=== PATIENT | male | born 1990 | race Caucasian/White ===

== ENCOUNTER 2022-05-05 06:25 | Observation (INO) ==
[2022-05-05] MEDS ORDERED: HYDROmorphone INJ 2 MG/ML SYR/VIAL IV STA ×2 (06:46→08:21)
[2022-05-05] MEDS ORDERED: ceFAZolin 3,000 MG in DEXTROSE 5% 50 ML IV STA (06:46)
[2022-05-05] MEDS ORDERED: SODIUM CHLORIDE 0.9% 1000ML 1,000 ML IV SCH (07:00)
--- NOTE | 2022-05-05 07:03 | XRay Report ---
XR chest 1V portable CLINICAL HISTORY: injury TECHNIQUE: Single frontal radiograph of the chest was obtained. Comparison: None available at the time of this dictation. FINDINGS: No lines and tubes are seen. The cardiomediastinal silhouette is normal. The lungs are clear. No evid ence of pleural effusion or pneumothorax. IMPRESSION: No acute chest disease. ACT 112: Negative or not required by law. Electronically signed by: Jose Luis Phan M.D. 05/05/2022 7:01 AM
[2022-05-05 07:08] LABS: Basophils # (auto) 0.06 K/uL (0-0.2); Basophils % (auto) 0.7 %; Eosinophils # (auto) 0.17 K/uL (0-0.50); Eosinophils % (auto) 1.9 %; Hematocrit (blood only) 48.7 % (40.1-51.0); Hemoglobin 16.8 g/dl (14.0-18.0); Immature Granulocytes # (auto) 0.05 K/uL (0.00-0.02); Immature Granulocytes % (auto) 0.6 %; Lymphocytes # (auto) 1.44 K/uL (1.2-3.4); Lymphocytes % (auto) 16.3 %; Mean Corpuscular Hemoglobin 30.1 pg (25.0-34.0); Mean Corpuscular Hgb Conc 34.5 g/dL (32.0-36.0); Mean Corpuscular Volume 87.3 fL (80.0-100.0); Mean Platelet Volume 10.4 fL (9.4-12.4); Monocytes # (auto) 0.66 K/uL (0.24-0.82); Monocytes % (auto) 7.5 %; Neutrophils # (auto) 6.47 K/uL (1.4-6.5); Platelet Count 227 K/uL (130-400); RDW Coefficient of Variation 13.3 % (11.5-14.5); RDW Standard Deviation 42.6 fL (36.4-46.3); Red Blood Count 5.58 M/uL (4.63-6.08); White Blood Count 8.85 K/ul (4.8-10.8)
--- NOTE | 2022-05-05 07:19 | XRay Report ---
XR tibia fibula LT 2V CLINICAL HISTORY: injury TECHNIQUE: 2 radiographic views of the left leg were obtained. Comparison: Comparison is made to left knee radiographs 04/07/2010 FINDINGS: There is an oblique fracture of the midshaft of the tibia with approximately 1 cortex width posterior displacement. Bony fragments are seen about the fracture. Joint spaces are well-preserved. Soft tiss ue swelling is seen. IMPRESSION: Oblique fracture of the mid tibia with a few bony fragments seen. ACT 112: Negative or not required by law. Electronically signed by: Jose Luis Phan M.D. 05/05/2022 7:18 AM
[2022-05-05 07:32] LABS: Albumin Globulin Ratio 1.4 (0.9-2); Albumin Level 4.3 gm/dl (3.4-5.0); BUN Creatinine Ratio 21.4 (10-20); Bilirubin,Total 0.5 mg/dl (0.2-1.0); Calcium 9.5 mg/dl (8.5-10.1); Creatinine Clr Calc Pharmacy 104.9 ml/min; Est GFR (African American) 112.5 ml/min; Potassium 3.9 mmol/L (3.5-5.1); Total Protein 7.3 gm/dl (6.0-8.3)
--- NOTE | 2022-05-05 08:21 | Emergency Department Note ---
History of Present Illness General Chief complaint: Leg Injury/Pain Time Seen by Provider: 05/05/22 06:30 History of Present Illness Maximum Pain Intensity: 8 32-year-old male presents to the ED with a chief complaint of a right leg injury. The patient states that he does not recall exactly what happened. He states that that he remembers being in town. He states that he was walking to a friend's house earlier this morning. He was walking against traffic. He states that he is not 100% sure what happened. He somehow injured his left leg. He states that he remembers a female friend of his asking him if he is okay. He told her that he thinks that he broke his leg. EMS was called and he was brought in here for evaluation. The patient states that he was using some methamphetamines this morning. He denies any other complaints of injury other than his leg. The patient denies any headaches, chest pains or shortness of breath. No abdominal pains. No nausea or vomiting. No recent illness. The exact time that occurred is unclear. Home Medications Medication Instructions Recorded Confirmed Type No Known Home Medications 05/05/22 05/05/22 History Allergies Allergy/AdvReac Type Severity Reaction Status Date / Time No Known Allergies Allergy NONE Unverified 05/05/22 11:15 Past Med/Surg History Social History Smoking Status: Current every day smoker Tobacco Type: Cigarettes Preferred Language: Maori Feels Safe at Home: Yes Review of Systems A total of 10 systems reviewed and were otherwise negative Physical Exam Vital Signs Vital Signs - 24 hr 05/05/22 06:27 05/05/22 07:00 05/05/22 07:38 Temperature 36.5 C Temperature Source Oral Pulse Rate 78 Pulse Rate [Apical] 78 Pulse Rhythm [Apical] Regular Pulse Strength [Apical] Normal Respiratory Rate 20 16 Respiratory Effort / Characteristics Non-Labored Spontaneous Non-Labored Respiratory Depth Normal Normal Respiratory Pattern Regular Blood Pressure 135/77 Blood Pressure [Left Arm] 146/82 H Blood Pressure Mean 96 Blood Pressure Mean [Left Arm] 103 Blood Pressure Position [Left Arm] Lying Pulse Oximetry 99 100 99 Oxygen Delivery Method Room Air Room Air Room Air Sepsis New/Unexplained Change in Mental Status N/A Sepsis Action Taken by Nursing No Action Required 05/05/22 09:00 Temperature Temperature Source Pulse Rate Pulse Rate [Apical] 90 Pulse Rhythm [Apical] Regular Pulse Strength [Apical] Normal Respiratory Rate 18 Respiratory Effort / Characteristics Non-Labored Respiratory Depth Normal Respiratory Pattern Regular Blood Pressure Blood Pressure [Left Arm] 125/66 Blood Pressure Mean Blood Pressure Mean [Left Arm] 85 Blood Pressure Position [Left Arm] Lying Pulse Oximetry 99 Oxygen Delivery Method Room Air Sepsis New/Unexplained Change in Mental Status Sepsis Action Taken by Nursing CONSTITUTIONAL/VITAL SIGNS: Reviewed / noted above. GENERAL: Non-toxic in appearance. INTEGUMENTARY: Warm, dry, and [place]. HEAD: Normocephalic. No evidence of trauma EYES: without scleral icterus or trauma. ENT/OROPHARYNX: clear and moist. LYMPHADENOPATHY/NECK: Is supple without lymphadenopathy or meningismus. RESPIRATORY: Clear to auscultation bilaterally. No increased work of breathing. CARDIOVASCULAR: Regular rate and rhythm. GI/ABDOMEN: Soft and nontender. No organomegaly or pulsatile mass. EXTREMITIES: Warm and well perfused. The patient has an open wound to the left anterior tibial region with some mild bleeding and pain and some crepitus with any movement. He is distally neurovascularly intact. There are some very minor abrasions noted to the bilateral forearms. BACK: No CVA tenderness. No midline tenderness to the cervical, thoracic or lumbar spine. No pain with compression of the thorax. No crepitus. NEUROLOGICAL: Intact without focal deficits. PSYCHIATRIC: normal affect. MUSCULOSKELETAL: Normally developed with good muscle tone. TRIAGE NURSING DOCUMENTATION REVIEWED. Course Administered Medications Discontinued Medications Hydromorphone HCl (Hydromorphone Inj 2 Mg/Ml Syr/Vial) 2 mg IV NOW STA Stop: 05/05/22 06:47 Last Admin: 05/05/22 06:51 Dose: 2 mg Documented By: ANDREI Hydromorphone HCl (Hydromorphone Inj 2 Mg/Ml Syr/Vial) 2 mg IV NOW STA Stop: 05/05/22 08:22 Last Admin: 05/05/22 08:29 Dose: 2 mg Documented By: Cefazolin Sodium 3,000 mg/ (Dextrose) 72.5 mls @ 145 mls/hr IV NOW STA Stop: 05/05/22 07:15 Last Infusion: 05/05/22 07:42 Dose: 0 mls/hr Documented By: Admin: 05/05/22 06:57 Dose: 145 mls/hr Documented By: ANDREI Sodium Chloride (Nss 1000ml) 1,000 mls @ 999 mls/hr IV .Q1H1M STEPHANIE Stop: 05/05/22 08:00 Last Infusion: 05/05/22 08:00 Dose: 0 mls/hr Documented By: Admin: 05/05/22 06:57 Dose: 999 mls/hr Documented By: ANDREI Medical Decision Making Differential Diagnosis Differential includes close head injury, intracranial bleed, facial trauma, cervical spine trauma, chest and thoracic trauma, abdominal and intra-abdominal trauma, spine neurologic trauma, extremity trauma. Medical Records Attestation: I reviewed the patient's medical records. Home Medications Current Medication List: was personally reviewed by me Laboratory Data Attestation: I reviewed the patient's lab results. Result diagrams: 05/05/22 05:40 05/05/22 05:40 Lab Results 05/05/22 05/05/22 05/05/22 Range/Units 05:40 05:40 08:35 WBC 8.85 (4.8-10.8) K/ul RBC 5.58 (4.63-6.08) M/uL Hgb 16.8 (14.0-18.0) g/dl Hct 48.7 (40.1-51.0) % MCV 87.3 (80.0-100.0) fL MCH 30.1 (25.0-34.0) pg MCHC 34.5 (32.0-36.0) g/dL RDW Std Deviation 42.6 (36.4-46.3) fL RDW Coeff of Diomedes 13.3 (11.5-14.5) % Plt Count 227 (130-400) K/uL MPV 10.4 (9.4-12.4) fL Immature Gran % (Auto) 0.6 % Neut % (Auto) 73.0 % Lymph % (Auto) 16.3 % [place] % (Auto) 7.5 % Eos % (Auto) 1.9 % Baso % (Auto) 0.7 % Neut # (Auto) 6.47 (1.4-6.5) K/uL Lymph # (Auto) 1.44 (1.2-3.4) K/uL [place] # (Auto) 0.66 (0.24-0.82) K/uL Eos # (Auto) 0.17 (0-0.50) K/uL Baso # (Auto) 0.06 (0-0.2) K/uL Immature Gran # (Auto) 0.05 H (0.00-0.02) K/uL Sodium 138 (136-145) mmol/L Potassium 3.9 (3.5-5.1) mmol/L Chloride 103 (98-107) mmol/L Carbon Dioxide 27 (21-32) mmol/L Anion Gap 8 (3-11) BUN 22 (6-23) mg/dl Creatinine 1.03 (0.6-1.4) mg/dl Est Cr Clr Drug Dosing 104.9 ml/min Est GFR ( Amer) 112.5 ml/min Est GFR (Non-Af Amer) 97.0 ml/min BUN/Creatinine Ratio 21.4 H (10-20) Glucose 137 H (70-99(Fasting)) mg/dl Calcium 9.5 (8.5-10.1) mg/dl Total Bilirubin 0.5 (0.2-1.0) mg/dl AST 25 (13-39) U/L ALT 15 (7-52) U/L Alkaline Phosphatase 56 (34-104) U/L Total Creatine Kinase 249 H (30-223) U/L Total Protein 7.3 (6.0-8.3) gm/dl Albumin 4.3 (3.4-5.0) gm/dl Globulin 3.0 (2.5-4.0) gm/dl Albumin/Globulin Ratio 1.4 (0.9-2) SARS-CoV-2, RNA, NAAT NEGATIVE (NEGATIVE) Imaging Data Radiologist's Impression: Chest X-Ray 05/05/22 06:46 XR chest 1V portable CLINICAL HISTORY: injury TECHNIQUE: Single frontal radiograph of the chest was obtained. Comparison: None available at the time of this dictation. FINDINGS: No lines and tubes are seen. The cardiomediastinal silhouette is normal. The lungs are clear. No evidence of pleural effusion or pneumothorax. IMPRESSION: No acute chest disease. ACT 112: Negative or not required by law. Electronically signed by: Jose Luis Phan M.D. 05/05/2022 7:01 AM Tibia/Fibula X-Ray 05/05/22 06:46 XR tibia fibula LT 2V CLINICAL HISTORY: injury TECHNIQUE: 2 radiographic views of the left leg were obtained. Comparison: Comparison is made to left knee radiographs 04/07/2010 FINDINGS: There is an oblique fracture of the midshaft of the tibia with approximately 1 cortex width posterior displacement. Bony fragments are seen about the fracture. Joint spaces are well-preserved. Soft tissue swelling is seen. IMPRESSION: Oblique fracture of the mid tibia with a few bony fragments seen. ACT 112: Negative or not required by law. Electronically signed by: Jose Luis Phan M.D. 05/05/2022 7:18 AM ECG Data Attestation: I personally reviewed and interpreted this ECG as follows: Additional Comments: Twelve-lead EKG: Per my interpretation shows a normal sinus rhythm at a rate of 93. No ST elevation. No PVCs. Normal QTC. Head Trauma GCS Score: 15 MDM Narrative 32-year-old male presents with a left leg injury as detailed above. He is x-ray shows an oblique fracture. His exam suggest an open fracture. Other than some minor abrasions to the bilateral forearms, no other suspected injury was found on exam. Blood work was unremarkable. I did speak with Dr. Cheema from orthopedics. The patient was seen by the physician assistant produce manager here and placed in a splint for the plan to take the patient to the operating room later today for repair. The patient was treated here with IV Dilaudid for his pain. He was given IV Ancef. Impression & Plan Open fracture of tibia Discharge Plan Visit Data Chief Complaint: Leg Injury/Pain ED Provider: Quintin Zhang Discharge Problem: Open fracture of tibia Patient Disposition: Being Evaluated by Surgeon Forms Stand Alone Forms: My [facility] Prescriptions Prescriptions: No Action No Known Home Medications Referrals Referrals: PCP,NO [Primary Care Provider] -
--- NOTE | 2022-05-05 11:01 | History & Physical Report ---
Date of Service May 05, 2022 Assessment & Plan (1) Open fracture of tibia: Wound and leg were cleaned with hibiclens brush and then betadine. I applied a dressing with xeroform, betadine soaked 4x4's and then a splint. Recommend I & D, and IM nailing of the left open tibia fracture. He wishes to proceed today with that. NPO. He was given ancef. We will give a dose of gent. as well. History of Present Illness Chief Complaint: .Open left tibia fracture Primary Care Provider: NO PCP . Koffi is a 32 year old patient brought to the ER by EMS with an open left tibia fracture. He doesn't recall how he injured his leg or exactly when it occurred. He believes he was just walking down the street. He apparently was using methamphetamine. He was given ancef in the ER. Allergies Allergy/AdvReac Type Severity Reaction Status Date / Time No Known Allergies Allergy NONE Unverified 08/23/09 14:02 Home Medications Medication Instructions Recorded Confirmed Type None (Patient States No Home Meds) ##0 04/07/10 History !Med List Verified In Ed ##0 07/26/10 History Past Med/Surg History Social History Smoking Status: Current every day smoker Tobacco Type: Cigarettes Preferred Language: Romanian Feels Safe at Home: Yes Review of Systems All systems reviewed & are unremarkable except as noted in HPI & below. Physical Exam . alert, NAD. left le-2cm diameter wound with some bleeding anterior lower leg. Also has another transverse wound more distally. This second wound did not appear to communicate deep. Compartments soft. Tender at the fracture site. Able to move toes appropriately. NVI Results & Data Results & Data Laboratory Results . Diagnostic Findings .xrays show a midshaft tibia fracture PG Care Time/CCT Total # of Minutes Spent Total Time Spent with Patient: Total time spent is greater than 50% in coordination of care (as documented) at patient's floor/unit and/or counseling patient: Coding Level of Care Code 18397 Initial Inpt Care Lvl 3 Diagnoses Open fracture of tibia S82.209B
[2022-05-05] MEDS ORDERED: GENTAMICIN CONSULT ACTIVE PRN ×5 (11:06→20:19)
[2022-05-05] MEDS ORDERED: GENTAMICIN SULFATE 100 MG in DEXTROSE 5% 100 ML IV STA (11:36)
[2022-05-05] MEDS ORDERED: MIDAZOLAM HCL 1 MG/ML 2ML VIAL ONE ×2 (13:33)
[2022-05-05] MEDS ORDERED: fentaNYL citrate 100 MCG/2 ML VIAL ONE (13:33)
--- NOTE | 2022-05-05 14:26 | Anesthesiology Consultation ---
Date of Service May 05, 2022 Assessment & Plan Chart Review Chart Review: Acceptable Risk for Surgery and Patient NOT seen in Pre Admission Testing Consults Requested none ASA [id number] Proposed Anesthesia Anesthesia Type: General Additional Comments: covid test neg. History Surgery Operation Date: 05/05/22 07:00 Proposed Procedures p Intramedullary Nail Left Tibia, Incision and Drainage of Open Left Tibia - Quintin Curiel MD Height/Weight Height: 5 ft 9 in Weight: 75.9 kg Allergies Allergy/AdvReac Type Severity Reaction Status Date / Time No Known Allergies Allergy NONE Unverified 05/05/22 11:15 Medications Home Medications Medication Instructions Recorded Confirmed Last Taken No Known Home Medications 05/05/22 05/05/22 Unknown Past Medical History methamphetamine use tobacco smoker;chews tobacco Exercise / Class Metabolic Activity II 4-5 Yardwork/Stairs/Walk up hill Past Anesthesia History No Hx of Anesthesia Complications and No Family Hx of Anesthesia Complications History of PONV No Hx of PONV and No Hx of Motion Sickness Social History Smoking Status: Current every day smoker substance use type: amphetamines and methamphetamine Physical Exam Vital Signs Last Vital Signs Temp 36.5 C 05/05/22 06:27 Pulse 74 05/05/22 13:00 Resp 16 05/05/22 13:00 BP 106/80 05/05/22 13:00 Pulse Ox 98 05/05/22 13:00 O2 Del Method 05/05/22 13:00 Testing Laboratory Results 05/05/22 05:40 05/05/22 05:40 Electrocardiogram Date: 05/05/22 Findings: + NSR @ (@ 93) Chest X-Ray Date: 05/05/22 Findings: + NAD
[2022-05-05] MEDS ORDERED: EPINEPHrine INJ 1 MG/ML AMP ONE (14:58)
[2022-05-05] MEDS ORDERED: BUPIVACAINE 0.5 % 5 MG/1 ML MPF 30ML VIAL ONE (14:58)
[2022-05-05] MEDS ORDERED: HYDROmorphone INJ 0.5 MG/0.5 ML SYR IV PRN ×2 (15:08→20:19)
[2022-05-05] MEDS ORDERED: HYDROmorphone INJ 2 MG/ML SYR/VIAL ONE (15:09)
[2022-05-05] MEDS ORDERED: ceFAZolin 2000MG 2,000 MG/15 ML SYR IV ONE (16:06)
[2022-05-05] MEDS ORDERED: ceFAZolin 330 MG/ML 1 GM VIAL ONE (16:08)
[2022-05-05] MEDS ORDERED: SODIUM CHLORIDE 0.9% INJ 10 ML VIAL ONE (16:08)
--- NOTE | 2022-05-05 16:12 | History & Physical Bridge Note ---
Date of Service May 05, 2022 History & Physical Bridge Note I have examined the patient, reviewed the History & Physical and in the interval since the performance of the History & Physical I have noted the following changes of clinical significance: no changes noted. I independently evaluated the patient and recommended surgery to him. We discussed the risks and benefits of LEFT OPEN TIBIA FRACTURE DEBRIDEMENT, OPEN REDUCTION AND INTERNAL FIXATION. He was agreeable to proceed batool.
[2022-05-05] MEDS ORDERED: KETAMINE 50 MG/5 ML SYRINGE ONE (16:40)
[2022-05-05] MEDS ORDERED: PROPOFOL IV EMULSION 10 MG/ML 20 ML VIAL IV ONE (16:40)
[2022-05-05] MEDS ORDERED: LIDOCAINE 2% MPF LOCAL 5 ML VIAL INFIL ONE (16:40)
[2022-05-05] MEDS ORDERED: DEXAMETHASONE SOD INJ 4 MG/ML VIAL ONE (16:40)
[2022-05-05] MEDS ORDERED: GLYCOPYRROLATE 0.2 MG/ML VIAL ONE (16:40)
[2022-05-05] MEDS ORDERED: NEOSTIGMINE METHYLSULFATE 1 MG/ML 10ML VIAL ONE (16:40)
[2022-05-05] MEDS ORDERED: ROCURONIUM BROMIDE 10 MG/ML 5 ML VIAL IV ONE (16:40)
[2022-05-05] MEDS ORDERED: LARYING-O-JET KIT (LTA) ONE (16:40)
[2022-05-05] MEDS ORDERED: ONDANSETRON INJ 2 MG/ML 2 ML VIAL ONE ×3 (16:40→19:16)
[2022-05-05] MEDS ORDERED: ePHEDrine sulfate 50 MG/ML AMP IV PRN (17:36)
[2022-05-05] MEDS ORDERED: ATROPINE SULFATE 0.1 MG/ML 10ML SYR IV PRN (17:36)
[2022-05-05] MEDS ORDERED: MEPERIDINE HCL 25 MG/ML CARP/VIAL IV PRN (17:37)
[2022-05-05] MEDS ORDERED: PHENYLEPHRINE 100MCG/ML 5ML SYR IV PRN (17:37)
[2022-05-05] MEDS ORDERED: ONDANSETRON INJ 2 MG/ML 2 ML VIAL IV PRN ×2 (17:37→20:19)
[2022-05-05] MEDS ORDERED: fentaNYL citrate 100 MCG/2 ML VIAL IV PRN (17:37)
[2022-05-05] MEDS ORDERED: HYDROmorphone INJ 2 MG/ML SYR/VIAL IV PRN (17:37)
[2022-05-05] MEDS ORDERED: LABETALOL HCL IV 5 MG/ML 20ML IV PRN (17:37)
[2022-05-05 18:04] LABS: Appearance Urine Clear (Clear); Bacteria Urine Automated Negative (Negative); Bilirubin Urine Negative (Negative); Blood Urine 3+ (Negative); Color Urine Yellow; Epithelial Cell Urine Auto >30 /lpf (0-5); Glucose Urine UA Negative (Negative); Ketones Urine 2+ (Negative); Leukocyte Esterase Urine Negative (Negative); Nitrite Urine Negative (Negative); Protein Urine Trace (Negative); RBC Urine Automated >30 /hpf (0-4); Specific Gravity Urine 1.029 (1.000-1.030); Urobilinogen Urine Negative (Negative); pH Urine 5.5 (4.5-7.5)
[2022-05-05 18:14] LABS: Calcium Oxalate Crystals Urine Present (None Prsent)
[2022-05-05 18:46] LABS: Amphetamines+Metham, Urine Pos (Neg); Barbiturates, Urine Neg (Neg); Benzodiazepine, Urine Neg (Neg); Cocaine, Urine Neg (Neg); MDMA (Ecstacy), Urine Pos (Neg); Methadone, Urine Neg (Neg); Opiate, Urine Pos (Neg); Phencyclidine, Urine Neg (Neg)
[2022-05-05] MEDS ORDERED: HYDROmorphone INJ 1 MG/ML SYRINGE ONE (18:49)
--- NOTE | 2022-05-05 19:07 | Fluoroscopy Report ---
FL tibia/fibula LT 2V CLINICAL HISTORY: LT ORIF IM NAIL TIBIA FX COMPARISON STUDY: Left tibia and fibula radiographs May 05, 2022. FLUOROSCOPY TIME: 118.5 seconds. FLUOROSCOPIC IMAGES: 11 FINDINGS: Fluoroscopy was provided during open reduction and internal fixation of the left tibial fra cture with intramedullary nail and proximal and distal screws. Fracture alignment has significantly i mproved and appears near anatomic. Hardware is intact. IMPRESSION: Fluoroscopy provided during open reduction and internal fixation of the left tibial frac ture. ACT 112: Negative or not required by law. Electronically signed by: Fidencio Dennis M.D. 05/05/2022 7:06 PM
--- NOTE | 2022-05-05 19:45 | Operative Report ---
PG Post Operative Report Pre & Post Diagnosis Operation Date: 05/05/22 07:00 Pre-Op Diagnosis: Left Open fracture of tibia Post-Op Diagnosis: Left Open fracture of tibia I identified the patient and participated in the time-out.: Yes Procedure Operation Date: 05/05/22 07:00 Actual Procedures p Intramedullary Nail Left Tibia, Incision and Debridement of Open Left Tibia, Closure of traumatic lacerations (Left) - Quintin Curiel MD Surgeon Quintin Curiel MD Chief Radiation Therapist Arvin Quintana PA-C Estimated Blood Loss 200 Findings See Below GustiloAnderson grade 2 open tibia fracture with straight/soil contamination. 5 cm traumatic laceration communicated to the distalmost aspect of the fracture. This was debrided and required extension to approximate 10 cm due to moderate soft tissue injury and some mild periosteal stripping. There was several comminution fragments including one about the size of a quarter that had to be debrided due to soft tissue stripping. A separate 3 cm full-thickness lac eration down to fascia, transverse in nature, distal to the fracture pattern required formal incision, debridement, irrigation and primary closure. The tibial fracture was stabilized with lobster-claw clamps through the open wound until a tibial nail was placed. All [employer] implants: 10 mm titanium cannulated tibial nailBX/345 mm, 5 mm titanium locking screw 40 filler millimeter length, 5 mm titanium locking screw 38 mm length, 5 mm titanium locking screw 48 mm length and 42 mm length, titanium and 5 mm. Specimens None Anesthesia Type General Complications none Disposition Accompanied Patient To Recovery: No Disposition: Recovery Room Indications 32-year-old male admitted through the emergency room for inability to ambulate. He is found to have an open tibia fracture without recollection of injury. Patient reports no prior left leg injuries. He denied any numbness or tingling that extremity. Provisional irrigation and debridement was performed in the ED, followed by provisional wound dressing and splinting. Antibiotics were started upon arrival. He was counseled on his injury and I recommended surgical intervention for irrigation and debridement of the open fracture and same-day stabilization with intramedullary nail. We discussed the risk of intervention includes not limited to infection, neurovascular injury, arthrofibrosis, malunion, nonunion, symptomatic hardware, need for repeat or revision surgeries, pain syndromes, blood clots, and complications related to anesthesia. He demonstrated reasonable understanding of the situation and options, and was agreeable to surgery. Informed consent was obtained in the emergency room.. Description of Procedure On the day of surgery, the patient was greeted in the preoperative holding area. The informed consent was reviewed and confirmed by myself and the patient. The patient identified the surgical site and was marked by me. The patient was then turned over to anesthesia. He was taken the operative placed upon the [facility] radiolucent OR table. Anesthesia was induced, and the airway was secured. We began gross decontamination of his left lower extremity. The traumatic wound was gently cleansed. Alcohol soaked 4 x 4's were used to cleanse the entire extremity from his thigh to his foot. All visible debris was removed. A nonsterile tourniquet was placed high in the thigh. The left lower extremity was then prepped and draped for surgery considering the open wound using Betadine scrub and paint. Surgical timeout was called by the circulating nurse. Antibiotics have been infused, equipment was available and functional, and all were in agreement to proceed. We began with an incision and debridement of his traumatic wounds. The Esmarch bandage was used to exsanguinate the extremity and the tourniquet was inflated to 250mmHg for total 41 minutes. An incision along the borders of his traumatic wound was carried out to remove devitalized skin and subcutaneous tissue. There was a large zone of injury and soft tissue stripping. The wound was extended proximally and distally to a total of about 10 cm to expose the zone. Sharp debridement was carried out using the knife, curette and rongeurs. All hematoma was removed. There is no visible environmental contamination deep in the wound. The bone ends cannot be delivered easily through the wound indicating that that was not gross displacement. The bone edges were exposed using a Ribeiro and thorough debridement was used sharply throughout the fracture bed. Large curettes were used to mobilize tissue and abundant irrigation was used. There was soft tissue injury to the periosteum through the fracture zone and down through the posterior compartment of the leg. A total of 9 L of irrigation was used between the traumatic wounds. A separate traumatic laceration was explored. It was transverse in nature just distal to his open fracture wound. This was full-thickness through the dermis but limited to the fascial layer. This was extended slightly and the traumatized skin was ellipsed. This was thoroughly irrigated as well. Extra drapes were preposition and removed to avoid cross-contamination. All previously used instruments for the debridement were removed from the field. A fresh half sheet was placed under the limb to start the nail procedure. With a clean wound bed, we began the approach to the patellar tendon. Medial parapatellar approach was carried out sharply. Bovie electrocautery was used for hemostasis. We then evaluated the fracture reduction with fluoroscopy. A ahgdz-jr-vajzq clamp was used for provisional reduction, followed by 2 separate large lobster claws the provided direct reduction of the moderate oblique fracture. It was in slight extension, so a towel bump was used proximally on the leg, followed by replacement of a proximal lobster-claw to reduce this. The reduction appeared to be anatomic. The leg was then placed on the trauma triangle in hyperflexion through the knee. The start point was then found using the starting pin from the tibial nail set. AP and lateral views were used. It was directed under fluoroscopic guidance. An awl was used to open the canal. The elbow was used to send the reduction wire with a slight bend at the tip. The guidewire was directed down to the tibial plafond under fluoroscopic guidance. A reduction was held in this hyperflexed position. We then began reaming. We started with a 8.5 mm reamer which passed easily. We then moved to a 9.5, 10.5, 11, and then 11.5 where there was adequate chatter. A 12 mm reamer was advanced just proximal to the fracture and it seemed to tighten. For that reason we selected a 10 mm nail. The length the nail was determined over the guidewire using fluoroscopy. We selected 345 mm long 10 mm diameter nail. The nail was loaded onto its handle and then passed along the guidewire across the fracture using a mallet. We did adjust the towel bump once to ensure an adequate reduction and avoid extension. The nail was sent to the tibial plafond under fluoroscopic guidance. The depth and position was adequate. We started with the distal interlocking screws using a perfect iliamna technique. Skin incision was made after fluoroscopically finding the interlock hole in the nail. 2 distal interlocks were placed using fluoroscopic guidance and the perfect iliamna technique. Then moved proximally. The fracture was back slapped gently to compress. Clamps were repositioned into the proximal fixation was achieved. The tibial nail jig was used to place the dynamic and static 1 proximal interlocking screws. Fluoroscopy was used for positioning and screw length. The nail was adequately fixed. The jig was removed. We did place the proximal end cap in case of need for hardware removal. Surgical sites were then thoroughly irrigated. The fracture bed was well reduced through the traumatic wound. Final fluoroscopic views were taken. Wound closure was begun. The traumatic wound involves closure using antibiotic 0 Vicryl suture in the deep periosteal and fascial layers were where possible. A majority of the bone was able to be covered with the exception of the area of high comminution. Fascia was approximated using 0 Vicryl suture. Several 2-0 Vicryl stitches were placed in the dermis. A #2 nylon trauma stitch was used to approximate the central portion of the traumatic wound. Final skin closure at the mid tibia wound was accomplished using 2-0 nylon stitches in a vertical mattress fashion. The transverse laceration was treated similarly with a few antibiotic 0 Vicryl stitches followed by 2-0 nylon. The surgical incisions at the parapatellar arthrotomy and interlock screws were all closed using 2-0 Vicryl and rafael. The deep parapatellar arthrotomy was closed using 0 Vicryl. Wounds are dressed with sterile Xeroform, sterile gauze, ABD and contained by web roll. A posterior Ortho-Glass splint was applied, contained by an Stephan wrap. The patient tolerated the procedure well, was extubated in the operating without complication, and transferred to the recovery area in stable condition. Disposition: He will remain inpatient for at least 24 hours of antibiotic coverage. We will cover with first generation cephalosporin with the addition of aminoglycoside for only 24 hours. He will be nonweightbearing to the left lower extremity. PT and OT consult should be obtained for mobilization. Case management be consulted for his social situation. Physician trust administrative assistant attestation: Arvin Quintana PA-C was present and scrubbed for the duration of the case. He was essential to prepping/draping, patient positioning, retraction, reduction, assistance with reaming, and assistance with wound closure. Skilled trust administrative assistant was necessary for this open fracture case. I attest to the content of the Intraoperative Record and any orders documented therein. Any exceptions are noted below.
--- NOTE | 2022-05-05 19:56 | XRay Report ---
XR tibia fibula LT 2V CLINICAL HISTORY: Postoperative evaluation. COMPARISON: Left tibia and fibula radiographs performed earlier today. FINDINGS: Interval open reduction and internal fixation of the left tibial fracture with intramedull anneliese nail and proximal and distal screws is noted. Hardware is intact. Fracture alignment has signific antly improved and is near anatomic. Skin rafael are present. No unexpected radiopaque foreign deion s. No acute left fibular fracture. IMPRESSION: Expected findings following open reduction and internal fixation of the left tibial fract ure. ACT 112: Negative or not required by law. Electronically signed by: Fidencio Dennis M.D. 05/05/2022 7:55 PM
[2022-05-05] MEDS ORDERED: ACETAMINOPHEN 325 MG TAB PO PRN (20:19)
[2022-05-05] MEDS ORDERED: bisacodyL 10 MG SUPP PR PRN (20:19)
[2022-05-05] MEDS ORDERED: DIPHTHERIA/TETANUS/PERTUSSIS 0.5 ML SYR/VIAL IM ONE (20:19)
[2022-05-05] MEDS ORDERED: GENTAMICIN SULFATE 360 MG in DEXTROSE 5% 100 ML IV SCH (20:19)
[2022-05-05] MEDS ORDERED: METOCLOPRAMIDE HCL INJ 5 MG/ML 2 ML VIAL IV PRN (20:19)
[2022-05-05] MEDS ORDERED: oxyCODONE HCL IR 5 MG TAB (IMMEDIATE RELEASE) PO PRN (20:19)
[2022-05-05] MEDS ORDERED: NALOXONE HCL 0.4 MG/1 ML VIAL/CARP IV PRN (20:19)
[2022-05-05] MEDS ORDERED: MAGNESIUM HYDROXIDE SUSP 30 ML UDC PO PRN (20:19)
--- NOTE | 2022-05-05 20:41 | Anesthesiology Progress Note ---
Date of Service May 05, 2022 Anesthesia Post Procedure Vital Signs Vital Signs: Temp Pulse Pulse Resp BP BP BP 05/05/22 20:36 36.9 C 108 H 20 146/79 H 05/05/22 20:00 36.4 C L 76 16 147/93 H 05/05/22 19:50 73 16 143/84 H 05/05/22 19:40 36.0 C L 97 H 16 155/95 H 05/05/22 14:19 37.2 C 82 16 145/74 H 05/05/22 13:00 74 16 106/80 05/05/22 11:57 90 18 136/83 05/05/22 09:00 90 18 125/66 05/05/22 07:38 78 16 146/82 H 05/05/22 07:00 05/05/22 06:27 36.5 C 78 20 135/77 Pulse Ox O2 Del Method O2 Flow Rate 05/05/22 20:36 99 Room Air 05/05/22 20:00 98 Room Air 05/05/22 19:50 98 Room Air 05/05/22 19:40 100 Oxymask 5 05/05/22 14:19 99 Room Air 05/05/22 13:00 98 Room Air 05/05/22 11:57 100 Room Air 05/05/22 09:00 99 Room Air 05/05/22 07:38 99 Room Air 05/05/22 07:00 100 Room Air 05/05/22 06:27 99 Room Air Pain Intensity Left Leg: Pain Intensity: 2 Transfer of Care Handoff Completed per policy Notes Mental Status: alert / awake / arousable Patient Amnestic to Procedure: Yes Nausea / Vomiting: adequately controlled Pain: adequately controlled Airway Patency, RR, SpO2: stable & adequate BP & HR: stable & adequate Hydration State: stable & adequate Anesthetic Complications: no major complications apparent and Pt Satisfied with anesthetic care
[2022-05-05] MEDS ORDERED: SENNA 8.6 MG TAB PO SCH (21:00)
[2022-05-05] MEDS: DOCUSATE SODIUM 100 MG CAP PO SCH (21:20)
[2022-05-05] MEDS: ceFAZolin 2000MG 2,000 MG/15 ML SYR IV SCH (21:20)
[2022-05-05] MEDS: PENICILLIN G POTASSIUM 2 MU in DEXTROSE 5% 100 ML IV SCH (22:02)
[2022-05-06] MEDS: PENICILLIN G POTASSIUM 2 MU in DEXTROSE 5% 100 ML IV SCH ×5 (02:55→17:10)
[2022-05-06] MEDS: ceFAZolin 2000MG 2,000 MG/15 ML SYR IV SCH ×2 (04:57→13:01)
--- NOTE | 2022-05-06 06:05 | Electrocardiogram Report ---
Test Reason : Blood Pressure : / mmHG Vent. Rate : 093 BPM Atrial Rate : 093 BPM P-R Int : 140 ms QRS Dur : 084 ms QT Int : 372 ms P-R-T Axes : 057 064 033 degrees QTc Int : 462 ms Normal sinus rhythm ST elevation, consider early repolarization, pericarditis, or injury No previous ECGs available Confirmed by Sonny Magana ([id number]) on 05/06/2022 6:05:16 AM Referred By: Confirmed By:Sonny Magana
[2022-05-06 06:55] LABS: Hematocrit (blood only) 40.8 % (40.1-51.0); Hemoglobin 13.7 g/dl (14.0-18.0); Mean Corpuscular Hemoglobin 29.9 pg (25.0-34.0); Mean Corpuscular Hgb Conc 33.6 g/dL (32.0-36.0); Mean Corpuscular Volume 89.1 fL (80.0-100.0); Mean Platelet Volume 9.8 fL (9.4-12.4); Platelet Count 238 K/uL (130-400); RDW Coefficient of Variation 13.4 % (11.5-14.5); RDW Standard Deviation 43.8 fL (36.4-46.3); Red Blood Count 4.58 M/uL (4.63-6.08)
[2022-05-06 07:14] LABS: BUN Creatinine Ratio 9.7 (10-20); Calcium 8.7 mg/dl (8.5-10.1); Est GFR (African American) 145.1 ml/min; Est GFR (Non-African American) 125.2 ml/min; Potassium 4.1 mmol/L (3.5-5.1)
[2022-05-06] MEDS: DOCUSATE SODIUM 100 MG CAP PO SCH (07:54)
--- NOTE | 2022-05-06 08:00 | Orthopedic Progress Note ---
Date of Service May 06, 2022 Assessment & Plan (1) Open fracture of tibia: No complications postop day 1 from incision and debridement of a GustilloAnderson type II open tibia fracture with stabilization using intramedullary nail. -Nonweightbearing to the left lower extremity, range of motion as tolerated to the knee and hip. Remain in the splint today. -Pain control with ice, elevation, acetaminophen, narcotics as needed -DVT prophylaxis will equal Lovenox 40 mg subcu daily. Can transition to aspir in at discharge. -Antibiotics should continue through 05/07 to include cephalosporin and penicillin Disposition: Needs to remain inpatient for IV antibiotic coverage 24 hours postoperatively which would late this evening. Prefer to carry on through 05/07 for PT/OT. We will continue Ancef until 72 hours or discharge. Case management required for discharge planning given his social situation. Plan for dressing change tomorrow. Subjective Reports tolerable pain. Nursing reports no issues other than the low-grade fever. He states he just wants to go home. Review of Systems All systems reviewed & are unremarkable except as noted in HPI & below. Physical Exam General: Appears well. Sleepy but arousable and conversant. Cooperative. LLE: Dressing is clean dry and intact. Moves all his toes that are well perfused. Palpable DP pulse Respiratory no respiratory distress Cardiovascular Extremities: normal capillary refill; no pedal edema Results & Data Results & Data Laboratory Results Laboratory Tests 05/06/22 06:05 Hgb 13.7 L D Hct 40.8 Diagnostic Findings Radiographs demonstrate acceptable reduction and no implant complications. PG Care Time/CCT Total # of Minutes Spent Total Time Spent with Patient: Total time spent is greater than 50% in coordination of care (as documented) at patient's floor/unit and/or counseling patient: Coding Level of Care Code 92413 Post Operative Follow-Up Diagnoses Open fracture of tibia S82.209B
[2022-05-06] MEDS ORDERED: ENOXAPARIN INJ 40 MG/0.4 ML SYR SQ SCH (09:00)
--- NOTE | 2022-05-08 09:19 | Discharge Summary ---
Date of Service May 08, 2022 Admission HPI (Per Admitting) . Koffi is a 32 year old patient brought to the ER by EMS with an open left tibia fracture. He doesn't recall how he injured his leg or exactly when it occurred. He believes he was just walking down the street. He apparently was using methamphetamine. He was given ancef in the ER. Admission Exam (Per Admitting) . alert, NAD. left le-2cm diameter wound with some bleeding anterior lower leg. Also has another transverse wound more distally. This second wound did not appear to communicate deep. Compartments soft. Tender at the fracture site. Able to move toes appropriately. NVI Principal Diagnosis Same as "Discharge Diagnosis" noted below under Discharge Instructions. Discharge Exam General: Appears well. Sleepy but arousable and conversant. Cooperative. LLE: Dressing is clean dry and intact. Moves all his toes that are well perfused. Palpable DP pulse Discharge Data Procedures Performed Operation Date: 05/05/22 07:00 Actual Procedures p Intramedullary Nail Left Tibia, (Left) - Quintin Curiel MD s Incision and Drainage of Open Left Tibia(Left) - Quintin Curiel MD Ordered Studies 05/05/22 FL tibia/fibula LT 2V Routine Hospital Course (1) Open fracture of tibia: Admitted post operatively after I&D of L open tibia fracture and IM nail of left tibia. He was to remain inpatient to complete a full 24 hours of IV antibiotics but left AMA on POD 1. Recommend follow up for wound check then two weeks post op, further follow up based on clinical exam as outpatient. PG Care Time/CCT Total # of Minutes Spent Total Time Spent with Patient: Total time spent is greater than 50% in coordination of care (as documented) at patient's floor/unit and/or counseling patient: Discharge Plan Discharge Items Patient Disposition: Against Medical Advice Reason For Visit: POST OP IM NAIL TIBIA Discharge Diagnosis: Same Activity: Per Instructions section Non-emergency contact: Surgeon Call non-emergency contact if: your pain is not controlled and your temperature is above 101 Follow-up/Referrals: Quintin Curiel MD [Surgeon] - PCP,NO [Physician] - Diet: Regular Addtl Attending Provider Instructions: -Keep dressing clean and dry -Do not put weight on your left leg until otherwise instructed by orthopedic provider -Follow up at an outpatient at earlist convenience Pending Studies at Discharge: No Stand-Alone Forms: My [facility], Smoking Cessation Medications and DC Order Prescriptions: No Action No Known Home Medications Discharge Orders: Left Against Medical Advice (Routine); Ordered 05/08/22 Ordered By: Arun Quintana Admission Data Admit Date/Time: 05/05/22 19:25 Attending Provider: Quintin Curiel Admit Provider: Quintin Curiel Primary Care Provider: Albaro Matt
[2022-05-10 14:37] LABS: Amphetamine Urine, Confirm 2480 ng/mL (<250); Codeine Urine NEGATIVE ng/mL (<50); Hydrocodone Urine NEGATIVE ng/mL (<50); Hydromor Urine 1520 ng/mL (<50); MDA negative; MDEA negative; MDMA (Ecstasy) Urine, Confirm negative; Marijuana Quant, GCMS Urine 28 ng/mL (<5); Methamphetamine, Ur Confirm 7980 ng/mL (<250); Morphine Urine NEGATIVE ng/mL (<50); Norhydrocodone Conf Ur NEGATIVE ng/mL (<50); Noroxycodone Urine NEGATIVE ng/mL (<50); Oxycodone Urine NEGATIVE ng/mL (<50); Oxymorph Urine NEGATIVE ng/mL (<50)
== END 2022-05-06 19:45 | disposition left against medical advice (07) ==
LOC: ED 06:25 → OR 14:15 → 3E 19:25 → INTOOBSV 19:25